=== PATIENT | female | born 1950 | race Caucasian/White ===

== ENCOUNTER → 2025-04-01 | Outpatient (CLI) | payer SELFPAY ==
--- NOTE | 2025-04-01 13:11 | RAD_ITS ---
PROCEDURE: SHOULDER MIN 2 VIEWS 04/01/2025 REASON FOR EXAM: RT SHOULDER PAIN TECHNIQUE: Four views right shoulder COMPARISON: None available FINDINGS: No fracture or dislocation. Mild irregularity to the lateral humeral head may represent changes of rotator cuff tendinopathy. Mild appearing acromioclavicular joint osteoarthrosis. Mild appearing glenohumeral joint osteoarthrosis. Incidental note of an azygous fissure, anatomic variant. RAD/Shoulder min 2 Views IMPRESSION: Mild appearing shoulder degenerative changes as above. Reading Location: [id number]
== END | disposition home or self-care (01) ==
PROVIDERS: PCP Nurse Practitioner Family; Referring Provider Anesthesiology Pain Medicine; Visit Provider Anesthesiology Pain Medicine
DX: M25.511 Pain in right shoulder (principal)
CPT/HCPCS: 73030